=== PATIENT | female | born 1985 | race Caucasian/White ===

== ENCOUNTER 2021-02-19 01:37 | Inpatient (IN) | payer OTHER ==
[2021-02-19 02:59] VITALS: BMI 35.0
[2021-02-19] MEDS ORDERED: ELECTROLYTE-148 SOLN 500 ML IV SCH (03:30)
[2021-02-19] MEDS ORDERED: PROMETHAZINE HCL 25 MG/1 ML VIAL IVPB ONE (03:30)
[2021-02-19] MEDS ORDERED: ELECTROLYTE-148 SOLN 1,000 ML IV SCH (03:30)
[2021-02-19] MEDS ORDERED: BUTORPHANOL TARTRATE 2 MG/ML VIAL IVPB ONE (03:30)
[2021-02-19 03:48] LABS: INR 0.82 (0.83-1.09); PROTHROMBIN TIME (PATIENT) 10.2 SEC (9.7-13.0)
[2021-02-19 03:49] LABS: BASO % 0.2 % (0-2.0); EOS % 0.8 % (0-4.5); HEMATOCRIT 30.9 % (32.4-45.2); HEMOGLOBIN 9.7 GM/dL (10.7-15.3); LYMPH % 15.7 % (8-40); MCHC 31.5 g/dl (32.0-36.0); MEAN CELL VOLUME 82.4 fl (80-96); MEAN PLT VOLUME 9.8 fl (7.5-11.1); MONO % 5.6 % (3.8-10.2); NEUT % 77.7 % (42.8-82.8); PLATELET COUNT 301 K/MM3 (134-434); RBC 3.75 M/mm3 (3.60-5.2); RDW 17.9 % (11.6-15.6); RETICULOCYTES 2.14 % (0.5-1.5); WHITE BLOOD COUNT 13.2 K/mm3 (4.0-10.0)
[2021-02-19 03:50] LABS: ACTIVATED PTT 28.5 SECONDS (25.2-36.5)
[2021-02-19 03:59] LABS: CALCIUM 8.2 mg/dL (8.5-10.1)
[2021-02-19 04:00] LABS: BLOOD UREA NITROGEN 13.6 mg/dL (7-18)
[2021-02-19 04:02] LABS: URIC ACID 4.8 mg/dL (2.6-7.2)
[2021-02-19 04:03] LABS: CREATININE 0.5 mg/dL (0.55-1.3)
[2021-02-19] MEDS ORDERED: AMPICILLIN - 2 GM in SODIUM CHLORIDE 100 ML IVPB ONE (04:45)
[2021-02-19] MEDS ORDERED: AMPICILLIN SODIUM 2 GM VIAL ONE (04:45)
[2021-02-19] MEDS ORDERED: PROMETHAZINE HCL 25 MG/1 ML VIAL ONE (06:28)
[2021-02-19] MEDS ORDERED: BUTORPHANOL TARTRATE 1 MG/ML VIAL ONE ×2 (06:28)
[2021-02-19] MEDS ORDERED: AMPICILLIN SODIUM 1 GM VIAL ONE (08:44)
[2021-02-19] MEDS ORDERED: AMPICILLIN - 1 GM in SODIUM CHLORIDE 100 ML IVPB SCH (08:45)
[2021-02-19] MEDS ORDERED: LIDOCAINE HCL 1% PRESERVATIVE FREE - 30ML VIAL ONE (08:45)
[2021-02-19] MEDS ORDERED: OXYTOCIN 20 UNITS in 0.9% NS 20 UNIT/1,000 ML INFUS.BAG IV ONE (08:45)
[2021-02-19] MEDS ORDERED: OXYTOCIN 30 UNITS in 0.9% NS 30 UNIT/500 ML INFUS.BAG IVPB ONE (09:07)
[2021-02-19] MEDS ORDERED: OXYTOCIN 30 UNITS in 0.9% NS 30 UNIT/500 ML INFUS.BAG IVPB SCH (09:15)
[2021-02-19] MEDS ORDERED: BISACODYL 10 MG SUPP.RECT RC PRN (11:05)
[2021-02-19] MEDS ORDERED: BENZOCAINE 28 GM HEMORRHOIDAL OINTMENT TP PRN (11:05)
[2021-02-19] MEDS ORDERED: IBUPROFEN 600 MG TABLET (FP) PO PRN (11:05)
[2021-02-19] MEDS ORDERED: ACETAMINOPHEN 325 MG TABLET (FP) PO PRN (11:05)
[2021-02-19] MEDS ORDERED: BENZOCAINE 20% 57 GM BOTTLE TP PRN (11:05)
[2021-02-19] MEDS ORDERED: METHYLERGONOVINE MALEATE 0.2 MG/1 ML AMP IM PRN (11:05)
[2021-02-19] MEDS ORDERED: WITCH HAZEL 50% (TUCKS) 40 PAD/JAR PAD TP PRN (11:05)
[2021-02-19] MEDS ORDERED: OXYTOCIN 20 UNITS in 0.9% NS 20 UNIT/1,000 ML INFUS.BAG IV SCH (11:15)
[2021-02-19] MEDS ORDERED: LABETALOL HCL 100 MG TABLET (FP) PO SCH (14:00)
[2021-02-19] MEDS ORDERED: LABETALOL HCL 200 MG TABLET (FP) ONE ×2 (14:26→21:37)
[2021-02-19] MEDS ORDERED: LABETALOL HCL 100 MG TABLET (FP) ONE ×2 (14:26→21:37)
[2021-02-19] MEDS: LABETALOL HCL 200 MG, LABETALOL HCL 100 MG PO SCH ×2 (14:28→21:51)
[2021-02-20 04:07] LABS: SARS-CoV-2 NAA Not Detected (Not Detected)
[2021-02-20 07:53] LABS: BASO % 0.2 % (0-2.0); EOS % 0.4 % (0-4.5); HEMATOCRIT 23.6 % (32.4-45.2); HEMOGLOBIN 7.6 GM/dL (10.7-15.3); LYMPH % 14.8 % (8-40); MEAN CELL VOLUME 81.2 fl (80-96); MEAN PLT VOLUME 9.1 fl (7.5-11.1); MONO % 5.5 % (3.8-10.2); NEUT % 79.1 % (42.8-82.8); PLATELET COUNT 242 K/MM3 (134-434); RDW 18.6 % (11.6-15.6); WHITE BLOOD COUNT 15.7 K/mm3 (4.0-10.0)
[2021-02-20 08:47] LABS: POC NITRAZINE POS
[2021-02-20] MEDS ORDERED: LABETALOL HCL 200 MG TABLET (FP) ONE ×2 (09:23→21:00)
[2021-02-20] MEDS ORDERED: LABETALOL HCL 100 MG TABLET (FP) ONE ×2 (09:23→20:59)
[2021-02-20] MEDS: PRENATAL VITAMINS W/ FOLIC ACID TABLET (FP) PO SCH (09:32)
[2021-02-20] MEDS: LABETALOL HCL 200 MG, LABETALOL HCL 100 MG PO SCH ×2 (09:32→21:02)
[2021-02-20] MEDS: FERROUS SO4 325 MG TABLET (FP) PO SCH (09:36)
[2021-02-20] MEDS ORDERED: FLU VACCINE (FLULAVAL) PF 60 MCG/0.5 ML SYRINGE 2020-2021 IM ONE (10:00)
[2021-02-20] MEDS ORDERED: DIPHTH,PERTUSS(ACELL),TET 0.5 ML DISP.SYRIN IM ONE (10:00)
[2021-02-20 17:04] LABS: BASO % 0.4 % (0-2.0); EOS % 1.1 % (0-4.5); HEMATOCRIT 23.6 % (32.4-45.2); HEMOGLOBIN 7.5 GM/dL (10.7-15.3); LYMPH % 17.4 % (8-40); MCH 26.3 pg (25.7-33.7); MCHC 31.6 g/dl (32.0-36.0); MEAN CELL VOLUME 83.3 fl (80-96); MEAN PLT VOLUME 9.2 fl (7.5-11.1); MONO % 5.6 % (3.8-10.2); NEUT % 75.5 % (42.8-82.8); PLATELET COUNT 264 K/MM3 (134-434); RBC 2.84 M/mm3 (3.60-5.2); RDW 18.8 % (11.6-15.6); WHITE BLOOD COUNT 15.2 K/mm3 (4.0-10.0)
[2021-02-20] MEDS ORDERED: SENNOSIDES/DOCUSATE COMBO (SENNA PLUS) TABLET (UD) PO PRN (22:00)
[2021-02-21] MEDS ORDERED: LABETALOL HCL 100 MG TABLET (FP) ONE (09:35)
[2021-02-21] MEDS ORDERED: LABETALOL HCL 200 MG TABLET (FP) ONE (09:35)
[2021-02-21] MEDS: PRENATAL VITAMINS W/ FOLIC ACID TABLET (FP) PO SCH (09:41)
[2021-02-21] MEDS: FERROUS SO4 325 MG TABLET (FP) PO SCH (09:41)
[2021-02-21] MEDS: LABETALOL HCL 200 MG, LABETALOL HCL 100 MG PO SCH (09:41)
[2021-02-21 12:43] VITALS: BP 116/74; PULSE 80; TEMP 98.6
== END 2021-02-21 13:30 | disposition home or self-care (01) | DRG 560 ==
LOC: JDEL 01:37 → JLDR 02:16 → J3W 13:15
PROVIDERS: ADMIT Obstetrics & Gynecology; ATTEND Obstetrics & Gynecology
PROC: 10E0XZZ Delivery of Products of Conception, External Approach (ICD-10-PCS; principal; 2021-02-19)
PROC: 0W8NXZZ Division of Female Perineum, External Approach (ICD-10-PCS; 2021-02-19)
PROC: 0KQM0ZZ Repair Perineum Muscle, Open Approach (ICD-10-PCS; 2021-02-19)
DX: O34.218 Maternal care for other type scar from previous cesarean delivery (principal); O16.4 Unspecified maternal hypertension, complicating childbirth; O90.81 Anemia of the puerperium; D64.9 Anemia, unspecified; O99.824 Streptococcus B carrier state complicating childbirth; Z3A.39 39 weeks gestation of pregnancy; Z37.0 Single live birth
CPT/HCPCS: 36415; 59409; 80048; 82570; 82977; 83010; 83986-QW; 84156; 84450; 84460; 84550; 85025; 85045; 85610; 85730; 86780; 86850; 86900; 86901; 90715; C9803; G0008; Q2036; U0003; U0005

== ENCOUNTER 2021-04-03 05:11 | Day surgery (SDC) | payer OTHER ==
[2021-04-02 10:38] VITALS: BMI 28.5
[2021-04-03] MEDS ORDERED: BUPIVACAINE HCL/PF 0.25% (2.5MG/ML) 10 ML VIAL ONE (08:52)
[2021-04-03 09:34] LABS: HEMATOCRIT 36.2 % (32.4-45.2); HEMOGLOBIN 11.6 GM/dL (10.7-15.3); MCH 26.5 pg (25.7-33.7); MEAN CELL VOLUME 82.8 fl (80-96); MEAN PLT VOLUME 7.7 fl (7.5-11.1); PLATELET COUNT 342 10^3/uL (134-434); RBC 4.38 M/mm3 (3.60-5.2); RDW 20.1 % (11.6-15.6); WHITE BLOOD COUNT 5.4 K/mm3 (4.0-10.0)
[2021-04-03 09:36] LABS: INR 0.87 (0.83-1.09); PROTHROMBIN TIME (PATIENT) 10.8 SEC (9.7-13.0)
[2021-04-03 09:57] LABS: CALCIUM 8.7 mg/dL (8.5-10.1)
[2021-04-03 09:58] LABS: ALBUMIN 3.3 g/dl (3.4-5.0); BLOOD UREA NITROGEN 12.5 mg/dL (7-18)
[2021-04-03] MEDS ORDERED: PROPOFOL 20 ML ONE (10:00)
[2021-04-03] MEDS ORDERED: SUCCINYLCHOLINE CHLORIDE 200 MG/10 ML SYRINGE ONE (10:00)
[2021-04-03] MEDS ORDERED: MIDAZOLAM HCL 2 MG/2 ML SINGLE DOSE VIAL ONE (10:00)
[2021-04-03 10:01] LABS: CREATININE 0.5 mg/dL (0.55-1.3)
[2021-04-03 10:02] LABS: BILIRUBIN,TOTAL 0.3 mg/dL (0.2-1); TOT PROT 6.6 g/dl (6.4-8.2)
[2021-04-03] MEDS ORDERED: BUPIVACAINE HCL/PF 0.25% (2.5MG/ML) 10 ML VIAL IJ ONE (10:27)
[2021-04-03] MEDS ORDERED: ONDANSETRON 4 MG/2 ML VIAL IVPUSH PRN (11:00)
[2021-04-03] MEDS ORDERED: LACTATED RINGERS SOLUTION 1,000 ML IV SCH (11:00)
[2021-04-03] MEDS ORDERED: oxyCODONE HCL 5 MG TABLET PO PRN ×2 (11:00)
[2021-04-03] MEDS ORDERED: ONDANSETRON 4 MG/2 ML VIAL ONE (11:35)
[2021-04-03 15:38] VITALS: BP 112/79; PULSE 64; TEMP 97.6
== END 2021-04-03 14:20 | disposition home or self-care (01) ==
LOC: JASU-SURG 05:11 → EDSTATUS 10:30 → JASU-SURG 14:20
PROVIDERS: ATTEND Obstetrics & Gynecology
PROC: 0UT74ZZ Resection of Bilateral Fallopian Tubes, Percutaneous Endoscopic Approach (ICD-10-PCS; principal; 2021-04-03 10:00)
DX: Z30.2 Encounter for sterilization (principal)
CPT/HCPCS: 36415; 80053; 81025; 84703; 85027; 85610; 86850; 86900; 86901; 88302-TC; 94760